=== PATIENT | female | born 1955 | race Caucasian/White ===

== ENCOUNTER 2019-10-01 08:36 | Outpatient (CLI) | payer OTHER, SELFPAY ==
--- NOTE | 2019-10-07 00:32 | SLEEP_ITS ---
Basic Nocturnal Polysomnogram DATE OF STUDY: 10/01/2019 REQUESTING PHYSICIAN: Arturo Weber M.D. REASON FOR THIS STUDY: Hypersomnia. HISTORY: This patient is a 63-year-old female, 66.5 inches tall, weighing 187 pounds for a body mass index of 29.7. She has a history of hypersomnolence. On a home sleep test April 21, 2019, the time on the exam was too short for proper evaluation. The apnea-hypopnea index was 4.6. She had difficulty tolerating wearing the device. At that time, her complaints included feeling tired most of the time, multiple nighttime awakenings, long history of insomnia. She has difficulty falling asleep and wakes during the night. It is difficult for her to go back to sleep again. She awakens too early and cannot feel rested in the morning. She has tried Ambien or gabapentin without success. Melatonin caused nightmares. On occasion, she would awaken from sleep feeling short of breath or with coughing. She denied snoring. She rarely complained of her heart pounding or beating irregularly at night and rarely complained of falling asleep during the day. She typically awakens 3 times at night. Normal bedtime is 9 p.m., taking 10 minutes and sometimes much longer to fall asleep. During her nighttime awakening, she will watch television, but will try to avoid stimulating activity such as television. She awakens at 5 in the morning. She estimates 6 to 7 hours of interrupted sleep during most nights. She does have a history of short naps and some of these are refreshing. MEDICAL COMORBIDITIES: Nonsustained ventricular tachycardia with neurally-mediated syncope, currently controlled with medication, occasional ocular migraine, neck strain, hypertension, nasal allergies, and hypersomnia. MEDICATIONS: 1. Norpace CR twice a day. 2. Taryn daily. 3. Vitamin C daily. 4. Singulair 10 mg a day. 5. Fish oil daily. 6. Vitamin E daily. 7. Magnesium supplements. 8. Calcium. 9. PreserVision AREDS 2 for her eye health. HABITS: Never smoked tobacco. Caffeine, 3 beverages a day. No alcohol. No recreational drugs. DESCRIPTION OF THE STUDY: On the [place] Sleepiness Scale, the score was 6. This was conducted as an attended full night nocturnal polysomnogram using the [employer] multiple channel system including EOG, EEG, submental EMG, EKG, nasal and oral airflow using thermistors and nasal pressure sensors, chest and abdominal belts, body position data and pulse oximetry. The study was scored using CMS guidelines. The duration of the study was 512 minutes. The sleep time was 273 minutes. Sleep efficiency was 53.3%. Sleep latency was prolonged at 51.3 minutes. REM latency was prolonged at 225.5 minutes. There were 18 awakenings and she spent 40.8% of the study awake after sleep onset 187.8 minutes. Sleep architecture showed 4.7% stage I sleep, 30.6% stage II sleep, 13% stage III sleep, and 11% stage REM. Sleep architecture was abnormal with long episodes of wakefulness during the night. There were 2 REM cycles. There was a long sleep latency and very prolonged REM latency. The apnea-hypopnea index was 1.8. There was no supine REM. She had 8 obstructive hypopneas in non-supine non-REM for an index of 2.3. The supine index was 0. Non-supine index was 1.8. The patient only spent 2% of the test in the supine position. The lowest desaturation was 88%. No time was spent below 88%. The mean saturation was 93%. There were 8 desaturations of 4% or greater for an index of 0.9. AROUSALS: Seventy-two arousals for an index of 8.4. There were 2 hypopneas for an index of 0.2, 23 snores for an index of 2.7, 38 spontaneous for an index of 4.5, and 9 limb movements for an index of 1.1. LIMB MOVEMENTS: One hundred thirteen isolated limb moveme
== END 2019-10-01 08:37 | disposition home or self-care (01) ==
LOC: ANHCSM 08:40
PROVIDERS: PCP Internal Medicine; Visit Provider Internal Medicine
DX: G47.10 Hypersomnia, unspecified (principal); G47.61 Periodic limb movement disorder
CPT/HCPCS: 95810

== ENCOUNTER 2020-01-27 11:43 | Outpatient (CLI) | payer OTHER, MEDICARE, SELFPAY ==
--- NOTE | ~2020-01-27 | XR_ITS ---
EXAMINATION: XR chest 2V 01/27/2020 12:01 INDICATION: Acute upper respiratory infection PROCEDURE: 2 view chest COMPARISON: 07/22/2008 FINDINGS: The lungs are clear. The cardiomediastinal silhouette is within normal limits. There are no pleural effusions. There is no pneumothorax suspected. IMPRESSION: 1: NO ACUTE CARDIOPULMONARY DISEASE. Reviewed, dictated and finalized at location A.
== END 2020-01-27 11:44 | disposition home or self-care (01) ==
PROVIDERS: PCP Internal Medicine; Visit Provider Internal Medicine
DX: J06.9 Acute upper respiratory infection, unspecified (principal)
CPT/HCPCS: 71046

== ENCOUNTER 2020-08-11 15:14 | Outpatient (CLI) | payer OTHER, MEDICARE, SELFPAY ==
--- NOTE | ~2020-08-11 | DEXA_ITS ---
Bone Density Report Name: Cassandra Morales Age: 64 Sex: Female Ethnicity: White Date of : 1955 Indication: osteopenia; height loss; history of glucocorticoids; prior fracture; asthma or emphysema; Referring Provider: BERNY WOLFF Study: Bone densitometry was performed. Exam Date: August 11, 2020 Accession number: [id number] Bone Density: Region BMD T-score Z-score Classification AP Spine (L1-L4) 0.914 -1.2 0.6 Osteopenia Femoral Neck (Left) 0.690 -1.4 0.1 Osteopenia Total Hip (Left) 0.861 -0.7 0.6 Normal Total Hip Bilateral Avg 0.847 -0.8 0.5 Normal Femoral Neck (Right) 0.678 -1.5 0.0 Osteopenia Total Hip (Right) 0.832 -0.9 0.4 Normal World Health Organization criteria for BMD impression classify patients as: Normal (T-score at or above -1.0), Osteopenia (T-score between -1.0 and -2.5), or Osteoporosis (T-score at or below -2.5). 10-year Fracture Risk(1): Major Osteoporotic Fracture 22% Hip Fracture 2.9% Reported Risk Factors: [place] (), Neck BMD=0.678, BMI=30.2, previous fracture, glucocorticoids (1) FRAX(R) Version 3.08. Fracture probability calculated for an untreated patient. Fracture probability may be lower if the patient has received treatment. Previous Exams: Region Exam Age BMD T-score BMD Change BMD Change Date g/cm2 vs Baseline vs Previous AP Spine(L1-L4) 08/11/2020 64 0.914 -1.2 -0.117(-11.3%) -0.010(-1.1%)# 04/06/2016 60 0.923 -1.1 -0.107(-10.4%) -0.050(-5.1%)# 07/17/2013 57 0.973 -0.7 -0.057(-5.6%)# -0.057(-5.6%)# 09/06/2009 53 1.030 -0.2 Total Hip(Left) 08/11/2020 64 0.861 -0.7 0.010(1.2%)# 0.008(1.0%)# 04/06/2016 60 0.853 -0.7 0.002(0.2%)# -0.019(-2.2%)# 07/17/2013 57 0.872 -0.6 0.020(2.4%)# 0.020(2.4%)# 09/06/2009 53 0.851 -0.7 Total Hip(Right) 08/11/2020 64 0.832 -0.9 0.026(3.2%)# 0.026(3.3%)# 04/06/2016 60 0.806 -1.1 0.000(0.0%)# -0.033(-3.9%)# 07/17/2013 57 0.839 -0.8 0.033(4.1%)# 0.033(4.1%)# 09/06/2009 53 0.806 -1.1 *Denotes significance at 95% confidence level, LSC for AP Spine = 0.022 g/cm2, LSC for Total Hip = 0.027 g/cm2 Clinical Information Provided by Patient: Has had a low trauma fracture Has taken Glucocorticoids Has used the following medications: Vitamin D, Calcium Has the following medical conditions: Asthma or Emphysema Patient maximum height was 67.5 Drinks caffeinated beverages Onset of menses at age 11 Number of children 1
== END 2020-08-11 15:15 | disposition home or self-care (01) ==
LOC: ANHIMG 15:15
PROVIDERS: PCP Internal Medicine; Visit Provider Internal Medicine
DX: M85.89 Other specified disorders of bone density and structure, multiple sites (principal)
CPT/HCPCS: 77080

== ENCOUNTER 2020-08-17 11:51 | Outpatient (CLI) | payer OTHER, MEDICARE, SELFPAY ==
--- NOTE | ~2020-08-17 | MMUS_ITS ---
EXAMINATION: MM diagnostic [facility] BI w nelson, US breast BI complete HISTORY: Six-month follow-up was requested for left breast cyst measuring 5 mm at 2:00 TECHNIQUE: ML, MLO and craniocaudal full field and spot 3-D tomosynthesis images of both breasts were performed and synthetic 2-D images were generated. CAD analysis was submitted and interpreted. High resolution breast ultrasound was performed. COMPARISON: 06/10/2019 diagnostic left digital mammogram and complete left breast ultrasound 06/02/2019, 05/2018 bilateral digital screening mammogram examinations BREAST PARENCHYMAL COMPOSITION: The breasts are heterogeneously dense, which may obscure small masses . FINDINGS: MAMMOGRAPHIC FINDINGS: There is a new circumscribed 5 mm opacity in the mid to upper outer right breast on cc view (cranioca udal Tomosynthesis image 23/54; MLO Tomosynthesis image /). Otherwise no suspicious mass, architectural distortion, malignant constipation, skin thickening or re traction or significant new or developing density of the breasts is evident. ULTRASOUND: There is an approximately 3 x 4.5 mm cyst at 9:00. There is an approximately 2 mm cyst at 2:00. No suspicious mass or shadowing of either breast is noted otherwise. IMPRESSION: 1. No mammographic evidence of malignancy 2. Routine annual mammographic screening is recommended. BI-RADS Category 2: Benign finding(s). Reviewed, dictated and finalized at location A. EED OIL REFINER IMPRESSION: 1. No mammographic evidence of malignancy 2. Routine annual mammographic screening is recommended. BI-RADS Category 2: Benign finding(s).
== END 2020-08-17 11:52 | disposition home or self-care (01) ==
LOC: ANHIMG 11:53
PROVIDERS: PCP Internal Medicine; Visit Provider Internal Medicine
DX: R92.8 Other abnormal and inconclusive findings on diagnostic imaging of breast (principal); N60.01 Solitary cyst of right breast
CPT/HCPCS: 76641; 77062; 77066; G0279

== ENCOUNTER 2020-11-05 09:41 | Outpatient (CLI) | payer OTHER, MEDICARE, SELFPAY ==
--- NOTE | 2020-11-05 | ECHO_ITS ---
Patient Info Name: Cassandra Morales Age: 65 years : 1955 Gender: Female Ht: 67 in Wt: 187 lbs BSA: 2.03 m2 HR: 81 bpm BP: 153 / 108 mmHg Heart Rhythm: Sinus Rhythm Technical Quality: Good Exam Date: 11/05/2020 10:04 AM Exam Location: [facility] Patient Status: Outpatient Admit Date: 11/05/2020 Staff Ordering Physician: Brian David MD Front End Mechanic: Eusebio Price, EARLE, RT Attending Provider: Brian David MD Referring Physician: Frankie CASTILLO; Exam Type: CA echo doppler color flow Study Info Indications R00.2 - Palpitations Complete two-dimensional, color flow and Doppler transthoracic echocardiogram is performed. Strain analysis performed. Summary 1. Complete two-dimensional, color flow and Doppler transthoracic echocardiogram is performed. 2. Strain analysis performed. 3. Left ventricular chamber dimension is normal. 4. Left ventricular systolic function is normal, estimated at 55-60%. 5. There is mildly increased left ventricular wall thickness. 6. The left ventricular diastolic function is grade I diastolic dysfunction. 7. There is mild mitral valve regurgitation. 8. There is mild tricuspid valve regurgitation. Left Ventricle Left ventricular chamber dimension is normal. Left ventricular systolic function is normal, estimated at 55-60%. There is mildly increased left ventricular wall thickness. The left ventricular diastolic function is grade I diastolic dysfunction. Global longitudinal strain is borderline at -16 %. Right Ventricle Right ventricular chamber dimension is normal. Right ventricular systolic function is normal. Left Atria Left atrial chamber dimension is normal. Right Atria Right atrial chamber dimension is normal. Atrial Septum Intact interatrial septum visualized by color flow imaging. Aortic Valve The aortic valve is trileaflet. There is no aortic valve sclerosis. There is no aortic valve stenosis. There is trace aortic valve regurgitation. Pulmonic Valve The pulmonic valve is normal. There is no pulmonic valve stenosis. There is trace pulmonic regurgitation. Mitral Valve The mitral valve has thickened leaflets. There is no mitral valve stenosis. There is mild mitral valve regurgitation. Tricuspid Valve The tricuspid valve leaflets are normal. There is no significant tricuspid valve stenosis. There is mild tricuspid valve regurgitation. No pulmonary hypertension, estimated pulmonary arterial systolic pressure is 23 mmHg. Pericardium/Pleural The pericardium appears normal. There is no pericardial effusion. Inferior Vena Cava Normal inferior vena cava with >50% collapse upon inspiration consistent with normal right atrial pressure, 5 mmHg. Aorta The aortic root size at the sinus of Valsalva is normal. The prox ascending aorta size is normal. Left Ventricular Outflow Tract Name Value Normal LVOT 2D LVOT Diameter 2.0 cm LVOT Doppler LVOT Peak Gradient 2 mmHg LVOT Mean Gradient 1 mmHg LVOT VTI 15 cm
== END 2020-11-05 09:42 | disposition home or self-care (01) ==
LOC: ANHCARD 09:42
PROVIDERS: PCP Internal Medicine; Visit Provider Internal Medicine Cardiovascular Disease
DX: R00.2 Palpitations (principal); Z86.16 Personal history of COVID-19; I08.1 Rheumatic disorders of both mitral and tricuspid valves
CPT/HCPCS: 93306

== ENCOUNTER 2022-04-06 08:19 | Outpatient (CLI) | payer MEDICARE, SELFPAY ==
--- NOTE | ~2022-04-06 | MM_ITS ---
EXAMINATION: MM screening [facility] BI w nelson HISTORY: Screening mammogram TECHNIQUE: Craniocaudal and mediolateral oblique 3-D tomosynthesis images were obtained and synthetic 2-D images were generated. CAD analysis was submitted and interpreted. COMPARISON: 08/17/2020, 06/10/2019, 06/02/2019 BREAST PARENCHYMAL COMPOSITION: There are scattered areas of fibroglandular density. FINDINGS: There is no suspicious mass, calcification, or architectural distortion to suggest malignan cy in either breast. There has been no suspicious interval change. IMPRESSION: 1. No mammographic evidence of malignancy. 2. Recommend routine screening mammography in one year. BI-RADS Category 1: Negative Reviewed, dictated and finalized at location A.
== END 2022-04-06 08:20 | disposition home or self-care (01) ==
DX: Z12.31 Encounter for screening mammogram for malignant neoplasm of breast (principal)
CPT/HCPCS: 77063; 77067

== ENCOUNTER 2022-10-24 12:42 | Outpatient (CLI) | payer MEDICARE, SELFPAY ==
--- NOTE | ~2022-10-24 | DEXA_ITS ---
Bone Density Report Name: DALI RUST Age: 66 Sex: Female Ethnicity: White Date of : 1955 Indication: osteopenia; height loss; asthma or emphysema; postmenopausal Referring Provider: UNKNOWN, UNKNOWN Study: Bone densitometry was performed. Exam Date: October 24, 2022 Accession number: [id number] Bone Density: Region BMD T-score Z-score Classification AP Spine(L1-L4) 0.859 -1.7 0.3 Osteopenia Femoral Neck (Left) 0.644 -1.8 -0.2 Osteopenia Total Hip (Left) 0.819 -1.0 0.4 Normal Femoral Neck (Right) 0.653 -1.8 -0.1 Osteopenia Total Hip (Right) 0.787 -1.3 0.1 Osteopenia Total Hip Mean 0.803 -1.2 0.3 Osteopenia World Health Organization criteria for BMD impression classify patients as: Normal (T-score at or above -1.0), Osteopenia (T-score between -1.0 and -2.5), or Osteoporosis (T-score at or below -2.5). 10-year Fracture Risk(1): Major Osteoporotic Fracture 10% Hip Fracture 1.5% Reported Risk Factors: [place] (), Neck BMD=0.644, BMI=32.1 (1) FRAX(R) Version 3.08. Fracture probability calculated for an untreated patient. Fracture probability may be lower if the patient has received treatment. Previous Exams: Region Exam Age BMD T-score BMD Change BMD Change Date g/cm2 vs Baseline vs Previous AP Spine (L1-L4) 10/24/2022 66 0.859 -1.7 -0.114 (-11.7% -0.055 (-6.0%) 08/11/2020 64 0.914 -1.2 -0.060 (-6.1%) -0.010 (-1.1%) 04/06/2016 60 0.923 -1.1 -0.050 (-5.1%) -0.050 (-5.1%) 07/17/2013 57 0.973 -0.7 Total Hip(Left) 10/24/2022 66 0.819 -1.0 -0.053 (-6.1%) -0.043 (-4.9%) 08/11/2020 64 0.861 -0.7 -0.011 (-1.2%) 0.008 (1.0%)# 04/06/2016 60 0.853 -0.7 -0.019 (-2.2%) -0.019 (-2.2%) 07/17/2013 57 0.872 -0.6 Total Hip(Right) 10/24/2022 66 0.787 -1.3 -0.052 (-6.2%) -0.045 (-5.4%) 08/11/2020 64 0.832 -0.9 -0.007 (-0.8%) 0.026 (3.3%)# 04/06/2016 60 0.806 -1.1 -0.033 (-3.9%) -0.033 (-3.9%) 07/17/2013 57 0.839 -0.8 *Denotes significance at 95% confidence level, LSC for AP Spine = 0.022 g/cm2, LSC for Total Hip = 0.027 g/cm2 # Denotes dissimilar scan types or analysis methods Clinical Information Provided by Patient: Has used the following medications: Vitamin D, Calcium Has the following medical conditions: Asthma or Emphysema Patient maximum height was 67 Menopause Age: 49 No regular weight bearing exercise Does not regularly consume dairy products Drinks caffeinated beverages Onset of menses at age 10 Numb
== END 2022-10-24 12:43 | disposition home or self-care (01) ==
DX: M85.89 Other specified disorders of bone density and structure, multiple sites (principal)
CPT/HCPCS: 77080